=== PATIENT | female | born 1950 | race Caucasian/White ===

== ENCOUNTER → 2016-09-26 | Outpatient (CLI) | payer MEDICARE ==
[2016-09-26 10:46] LABS: CHCM 31.2; HCT 38.8 % (34.0-46.0); HDW 2.37; HGB 12.6 gm/dL (11.4-16.0); MCH 30.3 pg (25.0-35.0); MCHC 32.4 g/dL (31.0-37.0); MCV 93.4 fL (80.0-100.0); Mean Platelet Volume 7.5; RBC 4.15 m/uL (3.80-5.40); RDW 14.1 % (11.5-15.5); WBC 6.1 k/uL (3.8-10.6)
[2016-09-26 10:59] LABS: ALT 17 U/L (9-52); AST 18 U/L (14-36); Alkaline Phosphatase 55 U/L (38-126); Anion Gap 8 mmol/L; Blood Urea Nitrogen 19 mg/dL (7-17); Carbon Dioxide 33 mmol/L (22-30); Chloride 101 mmol/L (98-107); Cholesterol 191 mg/dL (<200); Glucose 81 mg/dL (74-99); HDL Cholesterol 56 mg/dL (40-60); Non-African American GFR(MDRD) >60 (>60 ml/min/1.73 sqM); Potassium 4.1 mmol/L (3.5-5.1); Sodium 142 mmol/L (137-145); Total Bilirubin 0.4 mg/dL (0.2-1.3); Total Protein 6.7 g/dL (6.3-8.2); Triglycerides 255 mg/dL (<150)
== END | disposition home or self-care (01) ==
LOC: LABWHC1 09:53
PROVIDERS: ATTEND Internal Medicine
DX: E78.5 Hyperlipidemia, unspecified (principal); I10 Essential (primary) hypertension
CPT/HCPCS: 36415; 80053; 80061; 84443; 85027

== ENCOUNTER → 2016-12-25 | Outpatient (CLI) | payer MEDICARE ==
[2016-12-25 14:10] LABS: CH 28.7; CHCM 31.4; HCT 41.4 % (34.0-46.0); HDW 2.32; HGB 13.1 gm/dL (11.4-16.0); MCH 29.1 pg (25.0-35.0); MCHC 31.7 g/dL (31.0-37.0); MCV 91.8 fL (80.0-100.0); Mean Platelet Volume 7.3; RBC 4.51 m/uL (3.80-5.40); RDW 14.1 % (11.5-15.5); WBC 6.4 k/uL (3.8-10.6)
[2016-12-25 14:24] LABS: ALT 27 U/L (9-52); AST 25 U/L (14-36); Alkaline Phosphatase 59 U/L (38-126); Anion Gap 10 mmol/L; Blood Urea Nitrogen 20 mg/dL (7-17); Calcium 9.7 mg/dL (8.4-10.2); Carbon Dioxide 31 mmol/L (22-30); Chloride 103 mmol/L (98-107); Cholesterol 176 mg/dL (<200); Glucose 91 mg/dL (74-99); HDL Cholesterol 64 mg/dL (40-60); Non-African American GFR(MDRD) >60 (>60 ml/min/1.73 sqM); Potassium 3.8 mmol/L (3.5-5.1); Sodium 144 mmol/L (137-145); Total Bilirubin 0.3 mg/dL (0.2-1.3); Total Protein 6.9 g/dL (6.3-8.2); Triglycerides 170 mg/dL (<150)
== END | disposition home or self-care (01) ==
LOC: LABWHC1 13:33
PROVIDERS: ATTEND Psychiatry & Neurology Psychiatry
DX: E89.0 Postprocedural hypothyroidism (principal); C73 Malignant neoplasm of thyroid gland; F31.9 Bipolar disorder, unspecified; I10 Essential (primary) hypertension; E78.5 Hyperlipidemia, unspecified
CPT/HCPCS: 36415; 80053; 80061; 80164; 84432; 84439; 84443; 85027; 86800

== ENCOUNTER → 2017-04-30 | Outpatient (CLI) | payer MEDICARE ==
[2017-04-30 14:40] LABS: Basophils % (A) 0 %; CH 28.8; CHCM 32.2; Eosinophils # (A) 0.2 k/uL (0-0.7); Eosinophils % (A) 3 %; HCT 39.8 % (34.0-46.0); HGB 12.6 gm/dL (11.4-16.0); Luc # (Auto) 0.06; Luc % (Auto) 1; Lymphocytes # (A) 1.9 k/uL (1.0-4.8); Lymphocytes % (A) 33 %; MCH 28.6 pg (25.0-35.0); MCHC 31.8 g/dL (31.0-37.0); MCV 89.9 fL (80.0-100.0); Mean Platelet Volume 7.9; Monocytes # (A) 0.3 k/uL (0-1.0); Monocytes % (A) 5 %; Neutrophils # (A) 3.4 k/uL (1.3-7.7); Neutrophils % (A) 58 %; RBC 4.43 m/uL (3.80-5.40); WBC 5.8 k/uL (3.8-10.6); WBC (Perox) 6.66
[2017-04-30 14:54] LABS: ALT 22 U/L (9-52); AST 20 U/L (14-36); Alkaline Phosphatase 56 U/L (38-126); Anion Gap 11 mmol/L; Blood Urea Nitrogen 23 mg/dL (7-17); Calcium 9.5 mg/dL (8.4-10.2); Carbon Dioxide 29 mmol/L (22-30); Chloride 102 mmol/L (98-107); Cholesterol 211 mg/dL (<200); Glucose 82 mg/dL (74-99); HDL Cholesterol 59 mg/dL (40-60); Non-African American GFR(MDRD) >60 (>60 ml/min/1.73 sqM); Potassium 4.1 mmol/L (3.5-5.1); Sodium 142 mmol/L (137-145); Total Bilirubin 0.2 mg/dL (0.2-1.3); Total Protein 6.9 g/dL (6.3-8.2)
== END | disposition home or self-care (01) ==
LOC: LABWHC1 14:05
PROVIDERS: ATTEND Internal Medicine
DX: E78.2 Mixed hyperlipidemia (principal); E55.9 Vitamin D deficiency, unspecified; E03.9 Hypothyroidism, unspecified; I10 Essential (primary) hypertension; K21.9 Gastro-esophageal reflux disease without esophagitis
CPT/HCPCS: 36415; 80053; 80061; 82306; 84443; 85025

== ENCOUNTER → 2017-07-15 | Outpatient (CLI) | payer MEDICARE ==
--- NOTE | 2017-07-16 09:02 | MM ---
Reason for exam: screening (asymptomatic). Last mammogram was performed 1 year and 6 months ago. History: Patient is postmenopausal and has history of other cancer at age 58. Taking estrogen for 14 years 6 months. Taking progesterone for 14 years 6 months. Physical Findings: A clinical breast exam by your physician is recommended on an annual basis and results should be correlated with mammographic findings. MG 3D Screening Mammo W/Cad Bilateral CC and MLO view(s) were taken. Prior study comparison: January 16, 2016, bilateral MG 3d screening mammo w/cad. August 02, 2014, bilateral MG screening mammo w CAD. There are scattered fibroglandular densities. There is no discrete abnormality. No significant changes when compared with prior studies. ASSESSMENT: Negative, BI-RAD 1 RECOMMENDATION: Routine screening mammogram of both breasts in 1 year.
== END | disposition home or self-care (01) ==
LOC: RADMAMWWP 15:16
PROVIDERS: ATTEND Internal Medicine
DX: Z12.31 Encounter for screening mammogram for malignant neoplasm of breast (principal)
CPT/HCPCS: 77063; G0202

== ENCOUNTER → 2017-08-05 | Outpatient (CLI) | payer MEDICARE ==
[2017-08-05 15:39] LABS: Basophils % (A) 1 %; Eosinophils # (A) 0.1 k/uL (0-0.7); Eosinophils % (A) 2 %; HCT 41.4 % (34.0-46.0); HGB 13.3 gm/dL (11.4-16.0); Lymphocytes # (A) 2.1 k/uL (1.0-4.8); Lymphocytes % (A) 38 %; MCH 28.4 pg (25.0-35.0); MCHC 32.2 g/dL (31.0-37.0); MCV 88.3 fL (80.0-100.0); Mean Platelet Volume 7.9; Monocytes # (A) 0.3 k/uL (0-1.0); Monocytes % (A) 6 %; Neutrophils # (A) 2.9 k/uL (1.3-7.7); Neutrophils % (A) 53 %; Platelet Count 236 k/uL (150-450); RBC 4.68 m/uL (3.80-5.40); RDW 15.2 % (11.5-15.5); WBC 5.5 k/uL (3.8-10.6)
[2017-08-05 15:50] LABS: ALT 23 U/L (9-52); AST 19 U/L (14-36); Albumin 4.3 g/dL (3.5-5.0); Alkaline Phosphatase 58 U/L (38-126); Anion Gap 10 mmol/L; Blood Urea Nitrogen 23 mg/dL (7-17); Calcium 9.7 mg/dL (8.4-10.2); Carbon Dioxide 30 mmol/L (22-30); Chloride 102 mmol/L (98-107); Glucose 84 mg/dL (74-99); Potassium 3.9 mmol/L (3.5-5.1); Sodium 142 mmol/L (137-145); Total Bilirubin 0.3 mg/dL (0.2-1.3); Total Protein 6.9 g/dL (6.3-8.2)
== END | disposition home or self-care (01) ==
LOC: LABWHC1 15:09
PROVIDERS: ATTEND Internal Medicine
DX: E55.9 Vitamin D deficiency, unspecified (principal); E78.2 Mixed hyperlipidemia; E11.39 Type 2 diabetes mellitus with other diabetic ophthalmic complication
CPT/HCPCS: 36415; 80053; 82306; 84443; 85025

== ENCOUNTER → 2017-10-09 | Outpatient (CLI) | payer MEDICARE ==
[2017-10-09 14:57] LABS: HCT 42.2 % (34.0-46.0); HGB 13.3 gm/dL (11.4-16.0); MCH 27.8 pg (25.0-35.0); MCHC 31.5 g/dL (31.0-37.0); MCV 88.3 fL (80.0-100.0); Mean Platelet Volume 7.4; Platelet Count 230 k/uL (150-450); RBC 4.78 m/uL (3.80-5.40); RDW 14.1 % (11.5-15.5); WBC 6.7 k/uL (3.8-10.6)
[2017-10-09 15:14] LABS: ALT 20 U/L (9-52); AST 18 U/L (14-36); Albumin 4.1 g/dL (3.5-5.0); Alkaline Phosphatase 51 U/L (38-126); Anion Gap 12 mmol/L; Blood Urea Nitrogen 18 mg/dL (7-17); Carbon Dioxide 31 mmol/L (22-30); Chloride 100 mmol/L (98-107); Cholesterol 185 mg/dL (<200); Glucose 89 mg/dL (74-99); HDL Cholesterol 65 mg/dL (40-60); LDL Cholesterol,Calculated 82 mg/dL (0-99); Sodium 143 mmol/L (137-145); Total Bilirubin 0.5 mg/dL (0.2-1.3); Triglycerides 189 mg/dL (<150)
[2017-10-09 15:19] LABS: Valproic Acid (Depakene) 28.3 ug/mL
[2017-10-09 15:21] LABS: Potassium 4.2 mmol/L (3.5-5.1)
== END | disposition home or self-care (01) ==
LOC: LABWHC1 13:52
PROVIDERS: ATTEND Psychiatry & Neurology Psychiatry
DX: E78.5 Hyperlipidemia, unspecified (principal); E03.9 Hypothyroidism, unspecified; I10 Essential (primary) hypertension; E55.9 Vitamin D deficiency, unspecified; F31.9 Bipolar disorder, unspecified
CPT/HCPCS: 36415; 80053; 80061; 80164; 82306; 84443; 85027

== ENCOUNTER → 2017-11-14 | Outpatient (CLI) | payer MEDICARE ==
--- NOTE | 2017-11-14 23:13 | MR ---
EXAMINATION TYPE: MR lumbar spine wo con DATE OF EXAM: 11/14/2017 COMPARISON: MRI lumbar spine February 25, 2012 HISTORY: Low back pain per order. Chronic left-sided back pain going into left thigh and calf per pat ient. TECHNIQUE: Multiplanar, multisequence imaging of the lumbar spine is performed without IV contrast. FINDINGS: There is mild height loss superior L1 endplate redemonstrated. Sagittal images of the lumba r spine show vertebral body heights and alignment to otherwise remain satisfactory. Multilevel disc d esiccation with mild multilevel disc space narrowing is redemonstrated. There are slightly more prom inent posterior disc herniation L2-L3 level seen on sagittal images. The conus medullaris remains nor mal in position and signal ending at mid L1 level. There is marked heterogeneity of bone marrow signa l intensity with multilevel endplate changes identified progressed from prior. There is mild to moder ate multilevel anterior spurring. Axial images at the T12-L1 level shows mild broad-based disc bulge and mild to moderate ligamentum fl avum hypertrophy, there is mild effacement of anterior and posterior lateral thecal sac, bilateral ne ural foramina are patent. Axial images at L1-L2 levels with mild broad disc bulge mildly effacing the anterior thecal sac and m ild facet degenerative changes bilaterally the bilateral neuroforamina are patent. No significant sandee nge from prior study is seen. Axial images at L2-L3 level shows moderate broad-based disc bulge effacing anterior thecal sac causin g mild bilateral neural foraminal narrowing. Mild bilateral facet arthropathy is redemonstrated. Axial images at L3-L4 level mild to moderate facet degenerative changes and ligamentum flavum hypertr ophy bilaterally. There is mild broad disc bulge minimally effacing the anterior thecal sac. There is mild bilateral foraminal narrowing at this level identified. There is progression in facet arthropat hy at this level noted from prior. Axial images at L4-L5 level shows moderate to advanced facet arthropathy bilaterally, right greater t weems left with some effacement of the posterior lateral thecal sac. There is broad-based posterior dis c protrusion effacing the anterior thecal sac. Findings are more prominent from prior. There is moder ate bilateral inferior neural foraminal narrowing noted. Axial images at L5-S1 level show moderate to advanced facet degenerative changes bilaterally. Spinal canal is preserved. Bilateral neural foramina remain patent. Progression and facet arthropathy noted from prior. Some mild fat replaced atrophy of the posterior paraspinal muscles is redemonstrated. There is redem onstration of cystic change likely reflecting parapelvic cysts centrally in the left kidney. Stone fi lled gallbladder on prior study is less well seen on current study. IMPRESSION: Multilevel degenerative changes in the lumbar spine as detailed above with progression in findings noted from 2012 MRI.
== END | disposition home or self-care (01) ==
LOC: RADMRIMAIN 13:22
PROVIDERS: ATTEND Internal Medicine
DX: M47.817 Spondylosis without myelopathy or radiculopathy, lumbosacral region (principal)
CPT/HCPCS: 72148

== ENCOUNTER → 2018-01-22 | Outpatient (CLI) | payer MEDICARE ==
[2018-01-22 12:02] LABS: Valproic Acid (Depakene) 56.3 ug/mL
[2018-01-22 12:14] LABS: T4, Free (Free Thyroxine) 1.31 ng/dL (0.78-2.19)
== END | disposition home or self-care (01) ==
LOC: LABWHC1 11:22
PROVIDERS: ATTEND Psychiatry & Neurology Psychiatry
DX: D34 Benign neoplasm of thyroid gland (principal); F31.9 Bipolar disorder, unspecified
CPT/HCPCS: 36415; 80164; 84439; 84443; 84450; 84460

== ENCOUNTER → 2018-06-14 | Outpatient (CLI) | payer MEDICARE ==
[2018-06-14 14:30] LABS: Basophils % (A) 1 %; Eosinophils # (A) 0.1 k/uL (0-0.7); Eosinophils % (A) 2 %; HGB 13.2 gm/dL (11.4-16.0); Lymphocytes # (A) 1.9 k/uL (1.0-4.8); Lymphocytes % (A) 37 %; MCH 29.1 pg (25.0-35.0); MCHC 32.1 g/dL (31.0-37.0); MCV 90.6 fL (80.0-100.0); Mean Platelet Volume 7.2; Monocytes # (A) 0.3 k/uL (0-1.0); Monocytes % (A) 5 %; Neutrophils # (A) 2.8 k/uL (1.3-7.7); Neutrophils % (A) 53 %; Platelet Count 247 k/uL (150-450); RBC 4.53 m/uL (3.80-5.40); RDW 13.6 % (11.5-15.5); WBC 5.2 k/uL (3.8-10.6)
[2018-06-14 18:33] LABS: Valproic Acid (Depakene) 55.6 ug/mL (50.0-100.0)
[2018-06-14 18:39] LABS: Albumin 4.1 g/dL (3.80-4.90); Albumin/Globulin Ratio 2.05 (1.20-2.10); Anion Gap 6.5 mmol/L (4.00-12.00); Calcium 9.1 mg/dL (8.7-10.3); Carbon Dioxide 30.5 mmol/L (21.6-31.8); Potassium 4.1 mmol/L (3.5-5.5); Total Bilirubin 0.4 mg/dL (0.2-1.2); Total Protein 6.1 g/dL (6.2-8.2)
== END ==
LOC: LABWHC1 13:54
PROVIDERS: ATTEND Internal Medicine
DX: I10 Essential (primary) hypertension (principal); E03.9 Hypothyroidism, unspecified; E78.2 Mixed hyperlipidemia; F31.9 Bipolar disorder, unspecified
CPT/HCPCS: 36415; 80053; 80061; 80164; 84439; 84443; 85025

== ENCOUNTER → 2018-09-14 | Outpatient (CLI) | payer MEDICARE ==
[2018-09-14 13:09] LABS: Basophils % (A) 1 %; Eosinophils # (A) 0.1 k/uL (0-0.7); Eosinophils % (A) 3 %; HCT 41.8 % (34.0-46.0); HGB 13.5 gm/dL (11.4-16.0); Lymphocytes # (A) 1.7 k/uL (1.0-4.8); Lymphocytes % (A) 33 %; MCH 29.3 pg (25.0-35.0); MCHC 32.2 g/dL (31.0-37.0); MCV 91.1 fL (80.0-100.0); Mean Platelet Volume 7.3; Monocytes # (A) 0.3 k/uL (0-1.0); Monocytes % (A) 7 %; Neutrophils # (A) 2.8 k/uL (1.3-7.7); Neutrophils % (A) 56 %; Platelet Count 193 k/uL (150-450); RBC 4.59 m/uL (3.80-5.40); RDW 13.6 % (11.5-15.5); WBC 5.1 k/uL (3.8-10.6)
[2018-09-14 18:45] LABS: Valproic Acid (Depakene) 65.3 ug/mL (50.0-100.0)
[2018-09-14 18:50] LABS: Albumin 4.1 g/dL (3.80-4.90); Albumin/Globulin Ratio 2.16 (1.60-3.17); Anion Gap 5.9 mmol/L (4.00-12.00); Calcium 9.1 mg/dL (8.7-10.3); Carbon Dioxide 33.1 mmol/L (21.6-31.8); Globulin 1.9 g/dL (1.6-3.3); LDL Cholesterol,Calculated 41.2 mg/dL (0.0-131.0); Total Bilirubin 0.3 mg/dL (0.3-1.2); VLDL Calculation 30.8 mg/dL (5.00-40.00)
== END ==
LOC: LABWHC1 11:43
PROVIDERS: ATTEND Psychiatry & Neurology Psychiatry
DX: F31.9 Bipolar disorder, unspecified (principal); E55.9 Vitamin D deficiency, unspecified; I10 Essential (primary) hypertension; H21.9 Unspecified disorder of iris and ciliary body; E78.2 Mixed hyperlipidemia
CPT/HCPCS: 36415; 80053; 80061; 80164; 82306; 84439; 84443; 85025

== ENCOUNTER 2018-10-04 11:37 | Emergency (ER) | payer MEDICARE ==
[2018-10-04 11:57] VITALS: BP 159/82; PULSE 89; RESP 20; TEMP 97.9
[2018-10-04] MEDS ORDERED: ACETAMINOPHEN TAB 325 MG TAB PO STA (12:35)
--- NOTE | 2018-10-04 12:38 | ED ---
General Adult HPI - General Chief complaint: Head Injury Stated complaint: HEAD INJURY, NECK PAIN Time Seen by Provider: 10/04/18 12:01 Source: patient, RN notes reviewed Mode of arrival: ambulatory Limitations: no limitations - History of Present Illness Initial comments: 67-year-old female presents to the emergency department for chief complaint of head injury 3 weeks. Patient states that she was walking 3 weeks ago when she slipped on ice and fell and hit her head. Patient states she did lose consciousness at that time. She states she had a large bump to the back of her head. She states that over the past 3 weeks she has had severe headaches as well as light sensitivity. Patient states she has also felt tired over the past few weeks. She has has left-sided neck pain. She called her doctor who suggested she come to the emergency department for imaging. Patient has no other complaints at this time including shortness of breath, chest pain, abdominal pain, nausea or vomiting, headache, or visual changes. - Related Data Home Medications Medication Instructions Recorded Confirmed Atorvastatin [Lipitor] 10 mg PO HS 11/13/15 11/15/15 DULoxetine HCL [Cymbalta] 60 mg PO QAM 11/13/15 11/15/15 Divalproex [Depakote] 1,000 mg PO HS 11/13/15 11/15/15 Divalproex [Depakote] 500 mg PO QAM 11/13/15 11/15/15 Estradiol [Estrace] 0.5 mg PO QAM 11/13/15 11/15/15 Hydrocodone/Acetaminophen 1 tab PO Q4-6H PRN 11/13/15 11/15/15 [Hydrocodon-Acetaminophn 10-325] Levothyroxine Sodium [Synthroid] 125 mg PO QAM 11/13/15 11/15/15 Losartan/Hydrochlorothiazide 1 tab PO QAM 11/13/15 11/15/15 [Losartan-Hctz 50-12.5 mg Tab] QUEtiapine [SEROquel] 200 mg PO HS 11/13/15 11/15/15 Ranitidine HCl [Zantac] 150 mg PO BID 11/13/15 11/15/15 medroxyPROGESTERone [Provera] 2.5 mg PO DAILY 11/13/15 11/15/15 Allergies Allergy/AdvReac Type Severity Reaction Status Date / Time No Known Allergies Allergy Verified 10/04/18 11:56 Review of Systems ROS Statement: Those systems with pertinent positive or pertinent negative responses have been documented in the HPI. ROS Other: All systems not noted in ROS Statement are negative. Past Medical History Past Medical History: GERD/Reflux, Hyperlipidemia, Hypertension, Osteoarthritis (OA), Thyroid Disorder History of Any Multi-Drug Resistant Organisms: None Reported Past Surgical History: Appendectomy, Hysterectomy Additional Past Surgical History / Comment(s): THYROIDECTOMY. VEIN STRIPPING RIGHT. Past Anesthesia/Blood Transfusion Reactions: Motion Sickness Past Psychological History: ADD/ADHD, Anxiety, Bipolar, Depression Smoking Status: Never smoker Past Alcohol Use History: Daily, Occasional Past Drug Use History: None Reported - Past Family History Father Family Medical History: Coronary Artery Disease (CAD) Mother Family Medical History: COPD General Exam Limitations: no limitations General appearance: alert, in no apparent distress Head exam: Absent: atraumatic (Patient does have resolving hematoma noted over the left posterior scalp) Eye exam: Present: normal appearance, PERRL, EOMI. Absent: scleral icterus, conjunctival injection, periorbital swelling ENT exam: Present: normal exam, normal oropharynx, mucous membranes moist, TM's normal bilaterally (Negative hemotympanums), normal external ear exam Neck exam: Present: normal inspection, tenderness (Some generalized left-sided neck tenderness, no cervical spine tenderness.). Absent: meningismus, lymphadenopathy Respiratory exam: Present: normal lung sounds bilaterally. Absent: respiratory distress, wheezes, rales, rhonchi, stridor Cardiovascular Exam: Present: regular rate, normal rhythm, normal heart sounds. Absent: systolic murmur, diastolic murmur, rubs, gallop, clicks GI/Abdominal exam: Present: soft, normal bowel sounds. Absent: distended, tenderness, guarding, rebound, rigid Neurological exam: Present: alert, oriented X3, CN II-XII intact Psychiatric exam: Present: normal affect, normal mood Course Vital Signs 10/04/18 11:53 Temperature 97.9 F Pulse Rate 89 Respiratory 20 Rate Blood Pressure 159/82 O2 Sat by Pulse 98 Oximetry Medical Decision Making - Medical Decision Making No focal neuro deficits on exam. Patient is well-appearing. CT C-spine shows no fracture or dislocation. CT brain shows no acute intracranial hemorrhage or midline shift. Discussed the patient likely has concussion as she has photophobia, sensitivity to sound, and is more tired than normal. Discussed following up with her primary care provider returning here if she has any worsening symptoms. Discussed concussion precautions. Disposition Clinical Impression: Closed head injury Disposition: HOME SELF-CARE Condition: Good Instructions (If sedation given, give patient instructions): Concussion (ED) Additional Instructions: Please take Tylenol for pain. Please follow-up with your primary care provider in the next 1-2 days. Return here to the emergency department if you have any worsening symptoms. Is patient prescribed a controlled substance at d/c from ED?: No Referrals: Reid Barrera MD [Primary Care Provider] - 1-2 days Time of Disposition: 13:33
--- NOTE | 2018-10-04 13:19 | CT ---
EXAMINATION TYPE: CT brain carlaine marco con DATE OF EXAM: 10/04/2018 COMPARISON: NONE HISTORY: Continued headache and neck pain since fall [address] DLP: 1235.8 mGycm. Automated Exposure Control for Dose Reduction was Utilized. TECHNIQUE: CT scan of the head and cervical spine are performed without contrast. FINDINGS: There is no acute intracranial hemorrhage or midline shift identified. There is ventricul ar and sulcal consistent with diffuse cerebral atrophy. There is small scalp hematoma left parietal r egion axial image 40. The calvarium is intact. Vascular calcification distal internal carotid arterie s is noted bilaterally. The globes are intact and the visualized sinuses are clear. Cervical spine is visualized in its entirety from C1 through upper thoracic levels and demonstrates s traightened alignment without evidence of acute fracture or dislocation. Prevertebral soft tissue ap pears within normal limits. The C1-C2 articulation is within normal limits on the coronal images. V ertebral body heights are maintained. There is mild to moderate disc space narrowing with moderate to severe anterior spurring C5-C6 and C6-C7 levels. Moderate to severe spurring C7-T1 level is seen. Po sterior ossific projection effaces anterior thecal sac at C5 and C6 vertebral body levels on sagittal image 30. Review of axial images shows multilevel uncovertebral facet degenerative changes causing multilevel n eural foraminal narrowing. Thyroid gland is not visualized and may be congenitally or surgically abse nt. Visualized lung apices are clear. IMPRESSION: 1. There is no acute fracture or dislocation evident in the cervical spine. 2. No acute intracranial hemorrhage or midline shift is seen.
== END 2018-10-04 13:36 | disposition home or self-care (01) ==
LOC: EC 11:37
DX: S00.03XA Contusion of scalp, initial encounter (principal); M54.2 Cervicalgia; K21.9 Gastro-esophageal reflux disease without esophagitis; I10 Essential (primary) hypertension; E07.9 Disorder of thyroid, unspecified; E78.5 Hyperlipidemia, unspecified; F41.9 Anxiety disorder, unspecified; F31.9 Bipolar disorder, unspecified; Z79.890 Hormone replacement therapy; Z79.899 Other long term (current) drug therapy; W00.0XXA Fall on same level due to ice and snow, initial encounter; Y93.01 Activity, walking, marching and hiking
CPT/HCPCS: 70450; 72125; 99283

== ENCOUNTER → 2018-10-07 | Outpatient (CLI) | payer MEDICARE ==
--- NOTE | 2018-10-08 11:10 | MM ---
Reason for exam: screening (asymptomatic). Last mammogram was performed 1 year and 3 months ago. History: Patient is postmenopausal and has history of other cancer at age 58. Taking estrogen for 14 years 6 months. Taking progesterone for 14 years 6 months. Physical Findings: A clinical breast exam by your physician is recommended on an annual basis and results should be correlated with mammographic findings. MG 3D Screening Mammo W/Cad Bilateral CC and MLO view(s) were taken. Prior study comparison: July 15, 2017, bilateral MG 3d screening mammo w/cad. January 16, 2016, bilateral MG 3d screening mammo w/cad. There are scattered fibroglandular densities. No suspicious abnormality. No significant changes when compared with prior studies. ASSESSMENT: Negative, BI-RAD 1 RECOMMENDATION: Routine screening mammogram of both breasts in 1 year.
== END | disposition home or self-care (01) ==
LOC: RADMAMWWP 15:42
PROVIDERS: ATTEND Internal Medicine
DX: Z12.31 Encounter for screening mammogram for malignant neoplasm of breast (principal)
CPT/HCPCS: 77063; 77067

== ENCOUNTER → 2018-12-30 | Outpatient (CLI) | payer MEDICARE ==
[2018-12-30 17:03] LABS: African American GFR (CKD) >90 (>60 ml/min/1.73 sqM); Blood Urea Nitrogen 19 mg/dL (7-17)
--- NOTE | 2018-12-31 12:48 | CT ---
EXAMINATION TYPE: CT soft tissue neck w con DATE OF EXAM: 12/31/2018 10:44 AM COMPARISON: CT C-spine 10/04/2018 HISTORY: Neck mass/lump LT side, marked w/ BB. Pt c.o dysphagia. Hx thyroidectomy CT DLP: 359.20 mGycm Automated exposure control for dose reduction was used. CONTRAST: CT scan of the neck is performed following with IV Contrast, patient injected with 100 mL of Isovue 3 00. Axial images are obtained, coronal and sagittal reformatted images are reviewed. FINDINGS: Skull base is normal. At the site of the patient's palpable abnormality as marked with a BB there are underlying normal-appearing lymph nodes. These are stable compared to prior exam. Airway: No gross abnormality seen. Lung apices are normal. Parotid/submandibular glands: No gross abnormality seen. Carotid/Vascular Structures: There are 4 super aortic branch vessels. The innominate, left and right common carotid, left and right subclavian, left and right vertebral arteries are patent. Osseous Structures: Stable, degenerative disc changes are present. Other: No abnormal fluid collections. Level the true and false cords is normal. IMPRESSION: Normal appearing lymph nodes of the patient's palpable abnormality. Follow-up clinically .
== END | disposition home or self-care (01) ==
LOC: RADCTMAIN 16:16
PROVIDERS: ATTEND Internal Medicine
DX: R22.1 Localized swelling, mass and lump, neck (principal)
CPT/HCPCS: 82565; 84520; 70491; 36415; Q9967

== ENCOUNTER → 2020-05-18 | Outpatient (CLI) | payer MEDICARE ==
[2020-05-18 15:54] LABS: Basophils % (A) 1 %; Eosinophils # (A) 0.2 k/uL (0-0.7); Eosinophils % (A) 2 %; HCT 41.8 % (34.0-46.0); HGB 13.1 gm/dL (11.4-16.0); Lymphocytes # (A) 1.9 k/uL (1.0-4.8); Lymphocytes % (A) 29 %; MCH 28.9 pg (25.0-35.0); MCHC 31.4 g/dL (31.0-37.0); MCV 91.9 fL (80.0-100.0); Mean Platelet Volume 8.2; Monocytes # (A) 0.4 k/uL (0-1.0); Monocytes % (A) 6 %; Neutrophils # (A) 4.1 k/uL (1.3-7.7); Neutrophils % (A) 62 %; Platelet Count 222 k/uL (150-450); RBC 4.55 m/uL (3.80-5.40); RDW 13.8 % (11.5-15.5); WBC 6.7 k/uL (3.8-10.6)
[2020-05-19 00:20] LABS: INR 0.93 (0.90-1.11); Partial Thromboplastin Time 27.8 sec (24.7-29.9)
[2020-05-19 01:51] LABS: ALT <8 U/L (8-44); AST 13 U/L (13-35); Alkaline Phosphatase 67 U/L (41-126); BUN/Creat Ratio 38.57 Ratio (12.00-20.00); Calcium 9.2 mg/dL (8.7-10.3); Carbon Dioxide 30.2 mmol/L (21.6-31.8); Chloride 105 mmol/L (96-109); Globulin 2.1 g/dL (1.6-3.3); Glucose 102 mg/dL (70-110); Non-African American GFR(CKD) 87.2 (60.0-200.0); Potassium 3.9 mmol/L (3.5-5.5); Sodium 144 mmol/L (135-145); Total Bilirubin 0.2 mg/dL (0.3-1.2); Total Protein 6.3 g/dL (6.2-8.2)
[2020-05-19 03:02] LABS: Hemoglobin A1C 5.2 % (4.0-6.0)
== END | disposition home or self-care (01) ==
LOC: LABWHC1 14:06
PROVIDERS: ATTEND Orthopaedic Surgery
DX: Z01.818 Encounter for other preprocedural examination (principal); Z01.812 Encounter for preprocedural laboratory examination
CPT/HCPCS: 86900; 86901; 80053; 85025; 85610; 85730; 86850; 87070; 83036; 36415; U0003

== ENCOUNTER 2021-05-23 18:19 | Emergency (ER) | payer MEDICARE ==
[2021-05-23 18:36] VITALS: BP 139/78; PULSE 91; TEMP 99
[2021-05-23 18:42] VITALS: RESP 18
--- NOTE | 2021-05-23 19:41 | ED ---
General Adult HPI - General Chief complaint: Upper Respiratory Infection Stated complaint: Covid Exposure Time Seen by Provider: 05/23/21 18:45 Source: patient, RN notes reviewed Mode of arrival: ambulatory Limitations: no limitations - History of Present Illness Initial comments: 70-year-old female with a past medical history of hyperlipidemia, hypertension, GERD presents to the emergency room for a chief complaint of needing a coronavirus test. Patient states she was exposed to her sister 10 days ago who tested positive. Patient states that over the past couple days she has had some minimal congestion. She states her sister was very concerned that she may have Covid too and wanted her to be tested. Patient denies cough or shortness of breath. Denies fevers. Denies any other symptoms.Patient has no other complaints at this time including shortness of breath, chest pain, abdominal pain, nausea or vomiting, headache, or visual changes. - Related Data Home Medications Medication Instructions Recorded Confirmed Atorvastatin [Lipitor] 10 mg PO HS 11/13/15 11/15/15 DULoxetine HCL [Cymbalta] 60 mg PO QAM 11/13/15 11/15/15 Divalproex [Depakote] 1,000 mg PO HS 11/13/15 11/15/15 Divalproex [Depakote] 500 mg PO QAM 11/13/15 11/15/15 Hydrocodone/Acetaminophen 1 tab PO Q4-6H PRN 11/13/15 11/15/15 [Hydrocodon-Acetaminophn 10-325] Levothyroxine Sodium [Synthroid] 125 mg PO QAM 11/13/15 11/15/15 Losartan/Hydrochlorothiazide 1 tab PO QAM 11/13/15 11/15/15 [Losartan-Hctz 50-12.5 mg Tab] QUEtiapine [SEROquel] 200 mg PO HS 11/13/15 11/15/15 Ranitidine HCl [Zantac] 150 mg PO BID 11/13/15 11/15/15 estradioL [Estrace] 0.5 mg PO QAM 11/13/15 11/15/15 medroxyPROGESTERone [Provera] 2.5 mg PO DAILY 11/13/15 11/15/15 Allergies Allergy/AdvReac Type Severity Reaction Status Date / Time No Known Allergies Allergy Verified 05/23/21 18:37 Review of Systems ROS Statement: Those systems with pertinent positive or pertinent negative responses have been documented in the HPI. ROS Other: All systems not noted in ROS Statement are negative. Past Medical History Past Medical History: GERD/Reflux, Hyperlipidemia, Hypertension, Osteoarthritis (OA), Thyroid Disorder History of Any Multi-Drug Resistant Organisms: None Reported Past Surgical History: Appendectomy, Hysterectomy Additional Past Surgical History / Comment(s): THYROIDECTOMY. VEIN STRIPPING RIGHT. Past Anesthesia/Blood Transfusion Reactions: Motion Sickness Past Psychological History: ADD/ADHD, Anxiety, Bipolar, Depression Smoking Status: Never smoker Past Alcohol Use History: Daily, Occasional Past Drug Use History: None Reported - Past Family History Father Family Medical History: Coronary Artery Disease (CAD) Mother Family Medical History: COPD General Exam Limitations: no limitations General appearance: alert, in no apparent distress Head exam: Present: atraumatic Eye exam: Present: normal appearance, PERRL, EOMI. Absent: scleral icterus, conjunctival injection ENT exam: Present: normal exam, mucous membranes moist Neck exam: Present: normal inspection, full ROM. Absent: tenderness Respiratory exam: Present: normal lung sounds bilaterally. Absent: respiratory distress, wheezes Cardiovascular Exam: Present: regular rate, normal rhythm, normal heart sounds GI/Abdominal exam: Present: soft, normal bowel sounds. Absent: distended, tenderness Course Vital Signs 05/23/21 05/23/21 18:33 18:41 Temperature 99.0 F Pulse Rate 91 Respiratory 20 18 Rate Blood Pressure 139/78 O2 Sat by Pulse 96 Oximetry Medical Decision Making - Medical Decision Making Vitals are stable. Patient is well-appearing. Coronavirus test is negative. Se does not want a chest x-ray, does not have a cough. She will f/u with primary care in 1-2 days - Lab Data Lab Results 05/23/21 Range/Units 18:38 Coronavirus (PCR) Not Detected (Not Detectd) Disposition Clinical Impression: Congestion of nasal sinus Disposition: HOME SELF-CARE Condition: Good Instructions (If sedation given, give patient instructions): Rhinosinusitis (ED) Additional Instructions: Please follow up with primary care in 1-2 days. Return to the ER for any worsening symptoms. Is patient prescribed a controlled substance at d/c from ED?: No Referrals: Reid Barrera MD [Primary Care Provider] - 1-2 days Time of Disposition: 19:40
== END 2021-05-23 19:47 | disposition home or self-care (01) ==
LOC: EC 18:19
DX: R09.81 Nasal congestion (principal); Z20.822 Contact with and (suspected) exposure to COVID-19; I10 Essential (primary) hypertension; E78.5 Hyperlipidemia, unspecified; F31.9 Bipolar disorder, unspecified; F41.9 Anxiety disorder, unspecified; K21.9 Gastro-esophageal reflux disease without esophagitis; M19.90 Unspecified osteoarthritis, unspecified site; Z79.899 Other long term (current) drug therapy; Z90.49 Acquired absence of other specified parts of digestive tract; Z82.49 Family history of ischemic heart disease and other diseases of the circulatory system
CPT/HCPCS: 87635; 99283

== ENCOUNTER → 2021-08-23 | Outpatient (CLI) | payer MEDICARE ==
--- NOTE | 2021-08-26 11:02 | MM ---
Reason for exam: screening (asymptomatic). Last mammogram was performed 2 years and 10 months ago. History: Patient is postmenopausal and has history of other cancer at age 58. Taking estrogen for 14 years 6 months. Taking progesterone for 14 years 6 months. Physical Findings: A clinical breast exam by your physician is recommended on an annual basis and results should be correlated with mammographic findings. MG 3D Screening Mammo W/Cad Bilateral CC and MLO view(s) were taken. Prior study comparison: October 07, 2018, bilateral MG 3d screening mammo w/cad. July 15, 2017, bilateral MG 3d screening mammo w/cad. There are scattered fibroglandular densities. No significant changes when compared with prior studies. ASSESSMENT: Negative, BI-RAD 1 RECOMMENDATION: Routine screening mammogram of both breasts in 1 year.
== END | disposition home or self-care (01) ==
LOC: RADMAMWWP 15:31
PROVIDERS: ATTEND Internal Medicine
DX: Z12.31 Encounter for screening mammogram for malignant neoplasm of breast (principal); Z78.0 Asymptomatic menopausal state
CPT/HCPCS: 77063; 77067

== ENCOUNTER → 2021-08-23 | Outpatient (CLI) | payer MEDICARE ==
[2021-08-23 23:29] LABS: T4, Free (Free Thyroxine) 1.03 ng/dL (0.800-1.800)
== END | disposition home or self-care (01) ==
LOC: LABWHC1 16:10
PROVIDERS: ATTEND Internal Medicine
DX: E03.9 Hypothyroidism, unspecified (principal)
CPT/HCPCS: 36415; 84439; 84443

== ENCOUNTER → 2024-08-18 | Outpatient (CLI) | payer MEDICARE ==
--- NOTE | 2024-08-18 08:44 | MM ---
Reason for Exam: Clinical finding. Last mammogram was performed 3 year(s) and 0 month(s) ago. Patient History: Menarche at age 10. First Full-Term at age 19. Right ovary removed at age 22. Hysterectomy at age 22. Postmenopausal. Other cancer, age 58. Currently using Estrogen, for 14 years, 6 months. Currently using Progesterone, for 14 years, 6 months. Risk Values: Evie 5 year model risk: 1.6%. NCI Lifetime model risk: 3.4%. Prior Study Comparison: 02/25/2012 Bilateral Screening Mammogram, [facility]. 06/06/2013 Screening Mammogram, [facility]. 08/02/2014 Bilateral Screening Mammogram, [facility]. 01/16/2016 Bilateral Screening Mammogram, [facility]. 07/15/2017 Bilateral Screening Mammogram, [facility]. 10/07/2018 Bilateral Screening Mammogram, [facility]. 08/23/2021 Bilateral Screening Mammogram, [facility]. Tissue Density: There are scattered areas of fibroglandular density. Findings: Analyzed By CAD. No significant change from prior exams. The patient's palpable site in the left axilla is outside the field of view. Targeted ultrasound can be performed. Overall Assessment: Incomplete: need additional imaging evaluation, BI-RAD 0 Management: Diagnostic Breast Ultrasound of the left breast. [facility], , 08/18/2024 8:41 AM. Electronically signed and approved by: Dalton Keyes M.D. Radiologist
--- NOTE | 2024-08-19 08:21 | USB ---
EXAM: US breast axilla LT DATE OF EXAM: 08/18/2024 8:55 AM COMPARISON STUDIES: PATIENT HISTORY: RISK CALCULATION: FINDINGS: Ultrasound targeted to the patient's palpable lump left axilla. There is prominent but benign-appearing lymph node measuring 1.6 x 1.2 x 1.0 cm and uniform cortex measuring up to 1.5 mm. No other solid or cystic lesion. ASSESSMENT: 2 - Benign RECOMMENDATION: 1. Screening Mammogram Bilateral in 1 Year. COMMENTS: Slightly prominent but benign-appearing lymph node at the left axilla underlying the patient directed palpable site, probably reactive/post inflammatory. If any progressive enlargement is encountered, the patient can be rescanned. A clinical breast exam by your physician is recommended on an annual basis and results should be correlated with mammographic findings. This exam should not preclude additional follow-up of suspicious palpable abnormalities. Results were given to the patient verbally at the time of exam. [facility], , 08/18/2024 9:45 AM STEFANY
== END | disposition home or self-care (01) ==
LOC: RADMAMWWP 08:07
PROVIDERS: ATTEND Internal Medicine
DX: N63.0 Unspecified lump in unspecified breast (principal); Z90.721 Acquired absence of ovaries, unilateral; Z78.0 Asymptomatic menopausal state; R92.323 Mammographic fibroglandular density, bilateral breasts; R92.2 Inconclusive mammogram
CPT/HCPCS: 77066; 76642; G0279; 77062

== ENCOUNTER → 2024-08-19 | Outpatient (CLI) | payer MEDICARE ==
[2024-08-19 10:58] LABS: African American GFR (CKD) 75 (>60 ml/min/1.73 sqM); Blood Urea Nitrogen 18 mg/dL (7-17); Non-African American GFR(CKD) 65 (>60 ml/min/1.73 sqM)
--- NOTE | 2024-08-19 11:57 | BD ---
EXAMINATION TYPE: Axial Bone Density DATE OF EXAM: 08/19/2024 CLINICAL HISTORY: 73 years old Female. ICD-10 CODE: N95.1 MENOPAUSAL AND FEMALE CLIMACTERIC STATES , Additional History: Height: 60.5 Weight: 174.1 FRAX RISK QUESTIONS: Alcohol (3 or more units per day): no Family History (Parent hip fracture): no Glucocorticoids (More than 3mos): no (Ex: prednisone, prednisolone, methylprednisolone, dexamethasone, and hydrocortisone). History of Fracture in Adulthood: no Secondary Osteoporosis: 1. Type 1 Diabetes: no 2. Hyperthyroidism: no 3. Menopause before 45: no 4. Malnutrition: no 5. Chronic liver disease: no Rheumatoid Arthritis: no Current Tobacco Use: no RISK FACTORS HISTORY OF: Hip Fracture (Right/Left): no Spine Fracture: no History of Wrist Fracture: no Surgery to Spine/Hip(right/left)/Wrist (right/left): no MEDICATIONS: Thyroid Medications: Synthroid How Long: past 15 years Osteoporosis Medications: no EXAM MEASUREMENTS: Bone mineral densitometry was performed using the [employer] System. Bone mineral density as measured about the Lumbar spine is: ----- L1-L4(G/cm2): 1.675 T Score Values are as follows: ----- L1: 2.8 ----- L2: 3.4 ----- L3: 5.6 ----- L4: 4.2 ----- L1-L4: 4.1 Z Score Values are as follows: ----- L1: 4.1 ----- L2: 4.7 ----- L3: 6.9 ----- L4: 5.5 ----- L1-L4: 5.4 Bone mineral density has: increased 3.7% since the study of 08/02/2014 Bone mineral density about the R hip (g/cm2): 1.084 Bone mineral density about the L hip (g/cm2): 1.170 T Score values are as follows: -----R Neck: 0.0 -----L Neck: -0.6 -----R Total: 0.6 -----L Total: 1.3 Z Score values are as follows: -----R Neck: 1.6 -----L Neck: 1.0 -----R Total: 2.0 -----L Total: 2.7 Bone mineral density has: decreased 8.1% since the study of 08/02/2014 FRAX%s: The graph provided illustrates a 8.5% chance for a major osteoporotic fx and a 1.0% chance fo r the hips probability for fx in 10 years time. IMPRESSION: Normal (Values between +1 and -1 indicate normal bone mass). Consider repeating this study in 5 year s or sooner if there is some new clinical indication. NOTE: T-SCORE=SD OF THE YOUNG ADULT MEAN. [facility], , 08/19/2024 11:54 AM
--- NOTE | 2024-08-19 12:53 | CT ---
EXAMINATION TYPE: CT chest w con DATE OF EXAM: 08/19/2024 COMPARISON: Ultrasound left axilla yesterday HISTORY: left armpit pain CT DLP: 459.1 mGycm. Automated Exposure Control for Dose Reduction was Utilized. TECHNIQUE: CT scan of the thorax is performed following with IV Contrast, patient injected with 100 mL of Isovue 300. FINDINGS: LUNGS: The lungs are grossly clear, there is no concerning parenchymal mass or focal consolidation id entified. There is no pleural effusion or pneumothorax seen. The tracheobronchial tree is patent. MEDIASTINUM: There are no greater than 1 cm hilar or mediastinal lymph nodes. No cardiomegaly or pe ricardial effusion is seen. There is a 4 vessel origin or direct origin of the left vertebral artery from the arch which is normal variant. 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 Correl ate clinically. OTHER: Left axillary region shows no worrisome solid or cystic mass or abnormal fluid collection. No suspicious adenopathy is seen. There is 3.4 x 2.7 cm thin-walled cyst or fluid outpouching anterior t o the left kidney could reflect unusual renal diverticulum axial image 61 noted. Multilevel spurring in the thoracic spine is seen. IMPRESSION: Source of patient's left armpit Pain in not identified. [facility], , 08/19/2024 12:50 PM
== END | disposition home or self-care (01) ==
LOC: RADBDWWP 09:56
PROVIDERS: ATTEND Internal Medicine
DX: N95.1 Menopausal and female climacteric states (principal); R22.2 Localized swelling, mass and lump, trunk
CPT/HCPCS: 82565; 84520; 77080; 71260; 36415; Q9967

== ENCOUNTER 2024-11-09 09:26 | Emergency (ER) | payer MEDICARE ==
[2024-11-09] MEDS: DIPH,PERTUS(ACELL)TETVAC-LF 0.5 ML VIAL IM ONE (10:04)
--- NOTE | 2024-11-09 10:15 | CT ---
EXAMINATION TYPE: CT brain cspine wo con CT DLP: 1401.2 mGycm, Automated exposure control for dose reduction was used. DATE OF EXAM: 11/09/2024 10:05 AM COMPARISON: CT brain C-spine 10/04/2018. CLINICAL INDICATION:Female, 73 years old with history of pain; pain/fall, pain TECHNIQUE: Brain: Multiple axial CT images of the brain were obtained without IV contrast. Cspine: Axial CT images from the skull base to the inferior aspect of T2 we obtained without intraven ous contrast. Coronal and sagittal reformatted images were also reviewed. FINDINGS: Brain: Extra-axial spaces: No abnormal extra-axial fluid collections. Ventricular system: Dilatation in proportion to cerebral atrophy. Cerebral parenchyma: Age-appropriate mild cerebral volume loss. No acute intraparenchymal hemorrhage or mass effect. The grullon-white junction is well differentiated. Scattered hypoattenuating areas are seen within the periventricular white matter. Cerebellum: Unremarkable. Mass effect: No evidence of midline shift. Intracranial vasculature: Atherosclerotic calcifications of the intracranial vessels. Soft tissues: Normal. Calvarium/osseous structures: No depressed skull fracture. Paranasal sinuses and mastoid air cells: Clear. Visualized orbits: Bilateral aphakia Cervical spine: Fracture: None. Osseous structures: Multilevel degenerative disc disease changes with endplate spurring and disc oste ophyte complex's. Multilevel facet arthropathy. Vertebral alignment: Within normal limits. Spinal canal/Neural Foramina: Disc osteophyte complexes at T1-T2 and calcification of the posterior l ongitudinal ligament at C5 and C6.with at least mild spinal canal stenosis. Facet joint uncovertebral joint arthropathy scattered throughout the cervical spine with varying degrees of neural foraminal s tenosis. Neck soft tissues: Prevertebral soft tissues are within normal limits. Other: The airway is patent. The lung apices are clear. Left carotid bulb calcifications. Punctate si aloliths within the right submandibular gland. Thyroid gland appears surgically absent. IMPRESSION: 1. No acute intracranial process. 2. Nonspecific white matter changes, likely secondary to chronic small vessel ischemic disease. 3. No evidence of cervical spine fracture. 4. Moderate multilevel degenerative disc disease. [facility], , 11/09/2024 10:12 AM
--- NOTE | 2024-11-09 10:19 | ED ---
Fall HPI - General Chief Complaint: Fall Stated Complaint: fall,head injury Time Seen by Provider: 11/09/24 09:30 Source: patient, RN notes reviewed Mode of arrival: ambulatory Limitations: no limitations - History of Present Illness Initial Comments: 73-year-old female presents emergency department complaint of head injury. Patient states she tripped over a blanket in the middle of the night, striking the back of her head. She states she presents today because he still has some bleeding. Patient states she has mild headache no neck pain. Denies any focal weakness she has been slight nausea without vision changes patient denies any blood thinners no other complaints. - Related Data Home Medications Medication Instructions Recorded Confirmed Atorvastatin [Lipitor] 10 mg PO HS 11/13/15 11/15/15 DULoxetine HCL [Cymbalta] 60 mg PO QAM 11/13/15 11/15/15 Divalproex [Depakote] 1,000 mg PO HS 11/13/15 11/15/15 Divalproex [Depakote] 500 mg PO QAM 11/13/15 11/15/15 Hydrocodone/Acetaminophen 1 tab PO Q4-6H PRN 11/13/15 11/15/15 [Hydrocodon-Acetaminophn 10-325] Levothyroxine Sodium [Synthroid] 125 mg PO QAM 11/13/15 11/15/15 Losartan/Hydrochlorothiazide 1 tab PO QAM 11/13/15 11/15/15 [Losartan-Hctz 50-12.5 mg Tab] QUEtiapine [SEROquel] 200 mg PO HS 11/13/15 11/15/15 Ranitidine HCl [Zantac] 150 mg PO BID 11/13/15 11/15/15 estradioL [Estrace] 0.5 mg PO QAM 11/13/15 11/15/15 medroxyPROGESTERone [Provera] 2.5 mg PO DAILY 11/13/15 11/15/15 Allergies Allergy/AdvReac Type Severity Reaction Status Date / Time No Known Allergies Allergy Verified 11/09/24 09:30 Review of Systems ROS Statement: Those systems with pertinent positive or pertinent negative responses have been documented in the HPI. ROS Other: All systems not noted in ROS Statement are negative. Past Medical History Past Medical History: GERD/Reflux, Hyperlipidemia, Hypertension, Osteoarthritis (OA), Thyroid Disorder History of Any Multi-Drug Resistant Organisms: None Reported Past Surgical History: Appendectomy, Hysterectomy Additional Past Surgical History / Comment(s): THYROIDECTOMY. VEIN STRIPPING RIGHT. Past Anesthesia/Blood Transfusion Reactions: Motion Sickness Past Psychological History: ADD/ADHD, Anxiety, Bipolar, Depression Smoking Status: Never smoker Past Alcohol Use History: Daily, Occasional Past Drug Use History: None Reported - Past Family History Father Family Medical History: Coronary Artery Disease (CAD) Mother Family Medical History: COPD General Exam Limitations: no limitations General appearance: alert, in no apparent distress Head exam: Present: atraumatic, normocephalic. Absent: normal inspection (2 cm laceration posterior scalp superficial) Eye exam: Present: normal appearance, PERRL, EOMI. Absent: scleral icterus, conjunctival injection, periorbital swelling ENT exam: Present: normal exam, normal oropharynx, mucous membranes moist Neck exam: Present: normal inspection, full ROM. Absent: tenderness, meningismus, lymphadenopathy Respiratory exam: Present: normal lung sounds bilaterally. Absent: respiratory distress, wheezes, rales, rhonchi, stridor Cardiovascular Exam: Present: regular rate, normal rhythm, normal heart sounds. Absent: systolic murmur, diastolic murmur, rubs, gallop, clicks Neurological exam: Present: alert, oriented X3, CN II-XII intact, reflexes normal. Absent: motor sensory deficit Course Vital Signs 11/09/24 09:27 Temperature 98.2 F Pulse Rate 104 H Respiratory 18 Rate Blood Pressure 157/92 O2 Sat by Pulse 98 Oximetry Medical Decision Making - Medical Decision Making Was pt. sent in by a medical professional or institution (Dr. PA, BRAND STRATEGY MANAGER, urgent care, hospital, or [facility]...) When possible be specific @ -No Did you speak to anyone other than the patient for history (EMS, parent, family, police, friend...)? What history was obtained from this source @ -No Did you review nursing and triage notes (agree or disagree)? Why? @ -I reviewed and agree with nursing and triage notes Were old charts reviewed (outside hosp., previous admission, EMS record, old EKG, old radiological studies, urgent care reports/EKG's, [facility] records)? Report findings @ -No old charts were reviewed Differential Diagnosis (chest pain, altered mental status, abdominal pain women, abdominal pain men, vaginal bleeding, weakness, fever, dyspnea, syncope, headache, dizziness, GI bleed, back pain, seizure, CVA, palpatations, mental health, musculoskeletal)? @ -Differential Headache: Migraine, tension, cluster, carbon monoxide, central venous thrombosis, pension karma temporal arteritis, acute closure glaucoma, intercranial hemorrhage, mastoiditis, sinusitis, head injury, this is not meant to be an all-inclusive list. EKG interpreted by me (3pts min.). @ -None X-rays interpreted by me (1pt min.). @ -None done CT interpreted by me (1pt min.). @ -CT brain, C-spine showed no acute intracranial hemorrhage, mass effect no cervical fracture U/S interpreted by me (1pt. min.). @ -None done What testing was considered but not performed or refused? (CT, X-rays, U/S, labs)? Why? @ -None What meds were considered but not given or refused? Why? @ -None Did you discuss the management of the patient with other professionals (professionals i.e. , PA, BRAND STRATEGY MANAGER, lab, RT, psych nurse, social service worker, rehab rn, teacher, forest fire officer, rn field case manager)? Give summary @ -No Was smoking cessation discussed for >3mins.? @ -No Was critical care preformed (if so, how long)? @ -No Were there social determinants of health that impacted care today? How? (Homelessness, low income, unemployed, alcoholism, drug addiction, transportation, low edu. Level, literacy, decrease access to med. care, detention, rehab)? @ -No Was there de-escalation of care discussed even if they declined (Discuss DNR or withdrawal of care, Hospice)? DNR status @ -No What co-morbidities impacted this encounter? (DM, HTN, Smoking, COPD, CAD, Cancer, CVA, ARF, Chemo, Hep., AIDS, mental health diagnosis, sleep apnea, morbid obesity)? @ -None Was patient admitted / discharged? Hospital course, mention meds given and route, prescriptions, significant lab abnormalities, going to OR and other pertinent info. @ -Discharged patient presented for fall, head laceration. Patient tetanus updated patient has no laceration requiring closure bandage was applied. Patient is discharged in stable condition after normal CT. Undiagnosed new problem with uncertain prognosis? @ -No Drug Therapy requiring intensive monitoring for toxicity (Heparin, Nitro, Insulin, Cardizem)? @ -No Were any procedures done? @ -No Diagnosis/symptom? @ -Scalp abrasion, superficial laceration, head injury Acute, or Chronic, or Acute on Chronic? @ -Acute Uncomplicated (without systemic symptoms) or Complicated (systemic symptoms)? @ -Uncomplicated Side effects of treatment? @ -No Exacerbation, Progression, or Severe Exacerbation? @ -No Poses a threat to life or bodily function? How? (Chest pain, USA, PA, pneumonia, PE, COPD, DKA, ARF, appy, cholecystitis, CVA, Diverticulitis, Homicidal, Suicidal, threat to staff... and all critical care pts) @ -No Disposition Clinical Impression: Fall, Scalp abrasion, Head injury Disposition: HOME SELF-CARE Condition: Stable Instructions (If sedation given, give patient instructions): Head Injury (ED) Additional Instructions: Please return to the Emergency Department if symptoms worsen or any other concerns. Is patient prescribed a controlled substance at d/c from ED?: No Referrals: Reid Barrera MD [Primary Care Provider] - 1-2 days Time of Disposition: 10:25
[2024-11-09] MEDS: BACITRACIN OINT 1 EACH PACKET TOPICAL ONE (10:37)
[2024-11-09 10:49] VITALS: BP 139/84; PULSE 89; RESP 20; TEMP 97.9
== END 2024-11-09 10:50 | disposition home or self-care (01) ==
LOC: EC 09:26
DX: S01.01XA Laceration without foreign body of scalp, initial encounter (principal); Z23 Encounter for immunization; W01.198A Fall on same level from slipping, tripping and stumbling with subsequent striking against other object, initial encounter
CPT/HCPCS: 70450; 72125; 90471; 90715; 99283

== ENCOUNTER 2025-02-14 07:04 | Day surgery (SDC) | payer MEDICARE ==
[2025-02-14] MEDS: IV FLUID CONTINUATION 1,000 ML IV ONE (07:47)
[2025-02-14 07:49] VITALS: TEMP 97
[2025-02-14] MEDS: LACTATED RINGERS 1,000 ML IV SCH (07:54)
[2025-02-14] MEDS ORDERED: PROPOFOL 10 MG/ML 20 ML VIAL IV ONE (08:14)
[2025-02-14] MEDS ORDERED: LIDOCAINE 1% INJ 10MG/ML (20 ML MDV) ONE (08:14)
--- NOTE | 2025-02-14 08:45 | P.PCN ---
Date of Procedure: 02/14/25 Procedure(s) Performed: Brief history: Patient is a pleasant 74-year-old white female scheduled for an elective upper endoscopy as well as colonoscopy as a part of evaluation of GERD and screening for colon cancer Procedure performed: Esophagogastroduodenoscopy with biopsy Colonoscopy Preoperative diagnosis: GERD Screening for colon cancer Anesthesia: [facility] [place] Procedure: After informed consent was obtained from the patient was brought into the endoscopy unit and IV sedation was administered by anesthesia under continuous monitoring. Initially upper endoscopy was done. The Olympus GF 160 video endoscope was inserted inserted into the mouth and esophagus intubated without any difficulty and was gradually advanced into the stomach and duodenum and carefully examined. The bulb and second part of the duodenum appeared normal. The scope was then withdrawn into the stomach adequately insufflated with air and upon careful examination the antrum had mild gastritis and biopsies were done from this area. Mucosa body, cardia and fundus appeared normal. The scope was then withdrawn into the esophagus. The GE junction was located at 38 cm to the incisors. It appeared regular with no erythema erosions or ulcerations. Rest of the esophagus appeared normal. Patient tolerated the procedure well. At this time the patient continued to remain sedation. Initial digital rectal examination was normal. Olympus CF 160 video colonoscope was then inserted into the rectum and gradually advanced to the cecum with moderate to severe difficulty. Careful examination was performed as the scope was gradually being withdrawn. The prep was excellent. The base of the cecum could not be adequately visualized because despite multiple attempts I was not able to advance the scope into the base of the cecum. Part of the mucosa of the cecum could be visualized and appeared normal. The ascending colon, transverse colon, descending colon, sigmoid colon and rectum appeared normal. Retroflexion was performed in the rectum and no lesions were noted. Patient tolerated the procedure well. Impression: 1. Upper endoscopy revealed mild antral gastritis but no evidence of esophagitis or peptic ulcer disease 2. Colonoscopy was within normal limits with no evidence of colorectal neoplasia Recommendations: Findings of this examination were discussed with the patient as well as her family. She was advised to follow-up with the biopsy results. Recommended to increase pantoprazole to 40 mg twice daily and follow antireflux measures. Follow-up in the office in 2 to 3 weeks.
[2025-02-14 09:09] VITALS: BP 149/85; PULSE 90; RESP 16
== END 2025-02-14 09:28 | disposition home or self-care (01) ==
LOC: ORWHC2ENDO 07:04
PROVIDERS: ATTEND Internal Medicine Gastroenterology
DX: Z12.11 Encounter for screening for malignant neoplasm of colon (principal); K29.50 Unspecified chronic gastritis without bleeding; K21.9 Gastro-esophageal reflux disease without esophagitis; C73 Malignant neoplasm of thyroid gland; E78.5 Hyperlipidemia, unspecified; M19.90 Unspecified osteoarthritis, unspecified site; I10 Essential (primary) hypertension; F31.30 Bipolar disorder, current episode depressed, mild or moderate severity, unspecified; F41.9 Anxiety disorder, unspecified; F90.9 Attention-deficit hyperactivity disorder, unspecified type; Z79.890 Hormone replacement therapy; Z79.899 Other long term (current) drug therapy
CPT/HCPCS: 88305; 43239; J2003; J2704; G0121; 45378